=== PATIENT | female | born 1980 ===

== ENCOUNTER 2018-02-17 23:14 | Emergency (ER) | payer MEDICAID ==
[2018-02-17 23:15] VITALS: BMI 35.6
--- NOTE | 2018-02-18 00:04 | ED PDOC ---
HPI: Wound Care - HPI Time Seen by Provider: 02/17/18 23:56 Chief Complaint (Nursing): Wound Check History Per: Patient History Of Present Illness: PAtient arrives for suture removal of stitches placed in [place] 14 days ago, states she caught her finger in a door, was told she has a fracture but doens't wear finger splint because of excessive sweating. Asking for referral to hand surgeon. Exam Limitations: no limitations Past Medical History Reviewed: Historical Data, Nursing Documentation, Vital Signs Vital Signs: Last Vital Signs Temp 97.6 F 02/17/18 23:26 Pulse 83 02/17/18 23:26 Resp 16 02/17/18 23:26 BP 157/100 H 02/17/18 23:26 Pulse Ox 97 02/17/18 23:26 - Medical History PMH: No Chronic Diseases, HTN Denies: Chronic Kidney Disease - Surgical History Surgical History: Cholecystectomy (2009) - Family History Family History: States: Unknown Family Hx - Home Medications Home Medications: Ambulatory Orders Medication Instructions Recorded Vitamins6 [ 1 tab PO DAILY 11/06/14 Vitamin] Aspirin [Aspirin EC] 81 mg PO DAILY 02/03/15 Labetalol [Trandate] 200 mg PO BID 02/03/15 - Allergies Allergies/Adverse Reactions: Allergies Allergy/AdvReac Type Severity Reaction Status Date / Time Penicillins Allergy SHORTNESS Verified 08/25/15 21:54 OF BREATH Review of Systems ROS Statement: Except As Marked, All Systems Reviewed And Found Negative Physical Exam - Reviewed Nursing Documentation Reviewed: Yes Vital Signs Reviewed: Yes - Physical Exam Appears: Positive for: Well, Non-toxic, No Acute Distress Extremity: Positive for: Other (L seocnd finger with two stitches near DIP, well healed, no cellulitis, near FROM, sensation intact) - ECG O2 Sat by Pulse Oximetry: 97 Medical Decision Making Medical Decision Making: Sutures removed Placed back in finger splint Hand referral given Disposition - Clinical Impression Clinical Impression: Visit for suture removal - Patient ED Disposition Is Patient to be Admitted: No - Disposition Referrals: Jaja Jones MD [Staff Provider] - Disposition: Routine/Home Disposition Time: 00:04 Condition: STABLE Instructions: Stitches Removal
[2018-02-18 00:45] VITALS: BP 156/108; PULSE 85; RESP 14; TEMP 98.2; O2SAT 98
== END 2018-02-18 00:15 | disposition home or self-care (01) ==
LOC: H.ER 23:14
DX: Z48.02 Encounter for removal of sutures (principal)